=== PATIENT | female | born 1995 | race Two or more races ===

== ENCOUNTER 2016-09-25 18:09 | Emergency (ER) | payer OTHER ==
[2016-09-25 18:14] VITALS: BP 125/85; PULSE 100; RESP 16; TEMP 99.3; O2SAT 100
--- NOTE | 2016-09-25 19:05 | EDPHY ---
H & P Stated Complaint: LACERATION LEFT MIDDLE FINGER WITH KNIFE - Personal History LMP (Females 10-55): 15-21 Days Ago Current Tetanus Diphtheria and Acellular Pertussis (TDAP): Yes Tetanus Vaccine Date: < 10 YEARS - Medical/Surgical History Hx Asthma: No Hx Chronic Respiratory Disease: No Hx Diabetes: No Hx Cardiac Disease: No Hx Renal Disease: No Hx Cirrhosis: No Hx Alcoholism: No Hx HIV/AIDS: No Hx Splenectomy or Spleen Trauma: No Other PMH: denies - Social History Smoking Status: Never smoked HPI/ROS: CHIEF COMPLAINT: Laceration HISTORY OF PRESENT ILLNESS: could give this evening when she accidentally cut the distal tip of her left middle finger with a clean kitchen knife. There is a small laceration at the tuft of the finger. It does not involve the nail or the nail bed. Moderately tender to palpation. Improved at rest. Bleeding was easily stopped with compression. She has an up-to-date tetanus status given 2 years ago. She has no injuries elsewhere. This occurred within the past 2 hours. No other associated complaints or modifying factors. REVIEW OF SYSTEMS: Ten systems reviewed and are negative unless otherwise noted in the HPI EXAMINATION General Appearance: Alert, no distress Head: normocephalic, atraumatic Eyes: Pupils equal and round, no conjunctival pallor or injection Neck: Normal inspection Respiratory: No dyspnea or retractions. No distress Cardiovascular: Pulses normal throughout. Brisk cap refill In all fingers Neurological: A&O, sensory symmetric, strength symmetric Skin: Warm and dry, no rash. Small 0.25 cm laceration to the distal left middle finger. There is a portion of devitalized tissue. The wound margins are well approximated. No foreign body. No bleeding. Extremities: Tenderness to palpation over the laceration as listed above. Range of motion is fully intact. There is no deficit of the flexor or extensor apparatus. No injury to the nail bed on the affected finger. MDM: Superficial laceration with devitalized tissue. wound is very small, less than half a cm. The tissue involved is RD devitalized. We did discuss a digital block with surgical debridement versus suture. I do not feel that this small piece of skin will survive without suture repair. I did offer this, the patient has declined. Wound was clean and dressed with bacitracin and Band- Aids. Discharged home with routine wound care. Return for signs of infection as discussed. Patient comfortable with this plan. ED Precautions: Worsening pain. Erythema, edema, cyanosis, pallor, paresthesia or anesthesia. SUPERVISION: This patient was independently evaluated without the aide of supervising physician. (Pj Herrmann) Constitutional: Initial Vital Signs Temperature (C) 37.4 C 09/25/16 18:12 Heart Rate 100 09/25/16 18:12 Respiratory Rate 16 09/25/16 18:12 Blood Pressure 125/85 H 09/25/16 18:12 O2 Sat (%) 100 09/25/16 18:12 O2 Delivery Mode Room Air Allergies/Adverse Reactions: No Known Allergies Allergy (Unverified 09/25/16 18:15) Home Medications: Medication Instructions Recorded Garcinia Cambogia Tablet 09/25/16 Medical Decision Making Other Provider: The patient was evaluated and managed by the physician workforce development assistant. I have reviewed this chart and I agree with the findings and plan of care as documented , as indicated by my signature. I am the secondary supervising physician. ( Ana Castañeda) Departure - Departure Disposition: Home, Routine, Self-Care Clinical Impression: Injury of tip of finger of left hand, Superficial laceration Condition: Good Instructions: Laceration (ED), Finger Laceration (ED) Additional Instructions: Return to emergency department for worsening pain or signs of infection including redness, purulence or swelling. Bacitracin daily. Change the Band- Aid daily. Referrals: NONE *PRIMARY CARE P,. [Primary Care Provider] - As per Instructions Daniela Gordon MD [Medical Doctor] - As per Instructions
== END 2016-09-25 19:24 | disposition home or self-care (01) ==
DX: S61.213A Laceration without foreign body of left middle finger without damage to nail, initial encounter (principal); W26.0XXA Contact with knife, initial encounter

== ENCOUNTER 2016-10-03 21:10 | Emergency (ER) | payer OTHER ==
[2016-10-03 21:15] VITALS: BP 127/85; PULSE 102; RESP 18; TEMP 98.2; O2SAT 97
--- NOTE | 2016-10-03 22:04 | EDPHY ---
H & P Time Seen by Provider: 10/03/16 22:02 HPI/ROS: CHIEF COMPLAINT: HISTORY OF PRESENT ILLNESS: [Location, Duration, Severity, Quality, Context, Timing Modifying Factors, Associated S&S] REVIEW OF SYSTEMS: Constitutional: No fever, no chills Eyes: No visual changes ENT: No sore throat Respiratory: No cough, no shortness of breath Cardiac: No chest pain Gastrointestinal: No nausea, no vomiting, no abdominal pain Genitourinary: No hematuria, no dysuria Musculoskeletal: No leg pain or swelling Skin: No rash Neurological: No headache, no numbness, no weakness Psychiatric: No depression Smoking Status: Never smoked Physical Exam: General Appearance: Alert, no distress Eyes: Pupils equal and round, no conjunctival pallor or injection ENT, Mouth: Mucous membranes moist Neck: Normal inspection Respiratory: Lungs are clear to auscultation Cardiovascular: Regular rate and rhythm Gastrointestinal: Abdomen is soft and non- tender Neurological: A&O, nonfocal, normal gait Skin: Warm and dry, no rash Extremities: Nontender, no pedal edema Psychiatric: Mood and affect normal Constitutional: Initial Vital Signs Temperature (C) 36.8 C 10/03/16 21:14 Heart Rate 102 H 10/03/16 21:14 Respiratory Rate 18 10/03/16 21:14 Blood Pressure 127/85 H 10/03/16 21:14 O2 Sat (%) 97 10/03/16 21:14 O2 Delivery Mode Room Air Allergies/Adverse Reactions: No Known Allergies Allergy (Verified 10/03/16 21:13) Home Medications: Medication Instructions Recorded Garcinia Cambogia Tablet 09/25/16 Report Scribed for: Etta Morgan Report Scribed by: Moni Urbina Date of Report: 10/03/16 Time of Report: 22:03 Physician Review and Approval Statement: 10/03/16 22:04 Portions of this note were transcribed by a medical coordinator pesticide use. I personally performed a history, physical exam, medical decision making, and confirmed accuracy of information the transcribed note.
--- NOTE | 2016-10-03 22:11 | EDPHY ---
H & P Stated Complaint: Lip trauma, fall Time Seen by Provider: 10/03/16 22:02 HPI/ROS: CHIEF COMPLAINT: Lip abrasion HISTORY OF PRESENT ILLNESS: The patient is a 21-year-old healthy female who comes to the emergency department complaining of an abrasion to her lip and nose and a swollen upper lip after falling yesterday. She slipped on the ice about 24 hours ago and hit her face on the ground. She has abrasions but no lacerations. No dental or jaw pain. No head or neck pain. No loss of consciousness. No assault. She has been dressing her wounds with antibiotic ointment. She is here tonight asking if we have any creams or ointments that will take away the swelling. REVIEW OF SYSTEMS: Constitutional: denies: chills, fever, recent illness, recent injury EENTM: See HPI Respiratory: denies: cough, shortness of breath Cardiac: denies: chest pain, irregular heart rate, lightheadedness, palpitations Gastrointestinal/Abdominal: denies: abdominal pain, diarrhea, nausea, vomiting, blood streaked stools Genitourinary: denies: dysuria, frequency, hematuria, pain Musculoskeletal: denies: joint pain, muscle pain Skin: denies: lesions, rash, jaundice, bruising Neurological: denies: headache, numbness, paresthesia, tingling, dizziness, weakness Hematologic/Lymphatic: denies: blood clots, easy bleeding, easy bruising Immunologic/allergic: denies: HIV/AIDS, transplant EXAM: GENERAL: Well-appearing, well-nourished and in no acute distress. HEAD: Atraumatic, normocephalic. EYES: Pupils equal round and reactive to light, extraocular movements intact, sclera anicteric, conjunctiva are normal. ENT: Mild swelling and edema to upper lip. Abrasion below nose, small laceration to the mucosal aspect already closed does not require repair. Small superficial abrasions to nasal bridge an external nose. No septal hematoma. No fracture NECK: Normal range of motion, supple without lymphadenopathy or JVD. LUNGS: Breath sounds clear to auscultation bilaterally and equal. No wheezes rales or rhonchi. HEART: Regular rate and rhythm without murmurs, rubs or gallops. ABDOMEN: Soft, nontender, normoactive bowel sounds. No guarding, no rebound. No masses appreciated. BACK: No CVA tenderness, no spinal tenderness, step-offs or deformities EXTREMITIES: Normal range of motion, no pitting or edema. No clubbing or cyanosis. NEUROLOGICAL: Cranial nerves II through XII grossly intact. Normal speech, normal gait. 5/5 strength, normal movement in all extremities, normal sensation PSYCH: Normal mood, normal affect. SKIN: See above Source: Patient Exam Limitations: No limitations - Personal History LMP (Females 10-55): 1-7 Days Ago Current Tetanus Diphtheria and Acellular Pertussis (TDAP): Yes Tetanus Vaccine Date: < 10 YEARS - Medical/Surgical History Hx Asthma: No Hx Chronic Respiratory Disease: No Hx Diabetes: No Hx Cardiac Disease: No Hx Renal Disease: No Hx Cirrhosis: No Hx Alcoholism: No Hx HIV/AIDS: No Hx Splenectomy or Spleen Trauma: No Other PMH: denies - Family History Significant Family History: No pertinent family hx - Social History Smoking Status: Never smoked Alcohol Use: Sober Drug Use: None Constitutional: Initial Vital Signs Temperature (C) 36.8 C 10/03/16 21:14 Heart Rate 102 H 10/03/16 21:14 Respiratory Rate 18 10/03/16 21:14 Blood Pressure 127/85 H 10/03/16 21:14 O2 Sat (%) 97 10/03/16 21:14 O2 Delivery Mode Room Air Allergies/Adverse Reactions: No Known Allergies Allergy (Verified 10/03/16 21:13) Home Medications: Medication Instructions Recorded Garcinia Mannogia Tablet 09/25/16 Medical Decision Making ED Course/Re-evaluation: We discussed wound management for her abrasions as well as edema medication with ice and elevation and occasionally ibuprofen. She was hoping that we had a cream that would take with swelling. Also she was asking about ways of using makeup to cover up the swelling for school. We discussed indications for returning and follow-up. Additional verbal discharge instructions given. Differential Diagnosis: Partial list of the Differential diagnosis considered include but were not limited to; abrasion, laceration, dental injury and although unlikely based on the history and physical exam, I also considered head injury, neck injury, assault. I discussed these differential diagnoses and the plan with the patient as well as the usual and expected course. The patient understands that the diagnosis is provisional and that in medicine we are not always correct and that further workup is often warranted. Usual and customary warnings were given. All of the patient's questions were answered. The patient was instructed to return to the emergency department should the symptoms at all worsen or return, otherwise to followup with the physician as we discussed. Departure - Departure Disposition: Home, Routine, Self-Care Clinical Impression: Abrasion Condition: Fair Instructions: Abrasion (ED) Referrals: NONE *PRIMARY CARE P,. [Primary Care Provider] - As per Instructions
== END 2016-10-03 23:18 | disposition home or self-care (01) ==
DX: S00.511A Abrasion of lip, initial encounter (principal); W00.0XXA Fall on same level due to ice and snow, initial encounter